=== PATIENT | female | born 1970 | race Caucasian/White ===

== ENCOUNTER 2021-07-24 09:31 | Emergency (ER) | payer BC ==
[~2021-07-24] VITALS: Ht 172.7 cm; Wt 79.8 kg
== END 2021-07-24 13:18 | disposition home or self-care (01) ==
LOC: ER1 09:31
DX: U07.1 COVID-19 (principal); Z23 Encounter for immunization; Z90.710 Acquired absence of both cervix and uterus; Z88.0 Allergy status to penicillin; Z88.6 Allergy status to analgesic agent; Z88.2 Allergy status to sulfonamides
CPT/HCPCS: 99283; M0243